=== PATIENT | male | born 1990 | race Two or more races ===

== ENCOUNTER 2022-02-07 15:53 | Emergency (ER) | payer OTHER ==
[~2022-02-07] VITALS: Ht 182.9 cm; Wt 127.0 kg
[2022-02-07] MEDS ORDERED: LITHATE5 MG (16:13)
== END 2022-02-07 19:35 | disposition home or self-care (01) ==
LOC: ER 15:53
DX: R55 Syncope and collapse (principal); Z88.2 Allergy status to sulfonamides; F31.9 Bipolar disorder, unspecified